=== PATIENT | female | born 1985 | race Caucasian/White ===

== ENCOUNTER 2019-10-24 11:09 | Emergency (ER) | payer BC ==
--- NOTE | 2019-10-24 11:20 | ERPHSYRPT ---
- History of Present Illness Time Seen by Provider: 10/24/19 11:20 Historian: patient Exam Limitations: no limitations Physician History: This is a 34-year-old white female who presents with left-sided abdominal pain that came on suddenly this morning and has worsened and radiated into her left flank. Patient feels nauseated but no vomiting. There is been no diarrhea. Patient is never had this kind of pain before. She has had associated decreased urine output as well. She denies chest pain and she denies shortness of breath. Patient only takes oral contraceptive agents. She has no known drug allergies Timing/Duration: today Activities at Onset: none Quality: sharpness, stabbing Abdominal Pain Onset Location: LLQ, flank Pain Radiation: no radiation Severity of Pain-Max: moderate (Left) Severity of Pain-Current: moderate Modifying Factors: Improves With: nothing Associated Symptoms: diaphoresis, nausea, No chest pain, No diarrhea, No vomiting Previous symptoms: no prior history Allergies/Adverse Reactions: No Known Drug Allergies Allergy (Verified 10/24/19 11:24) Home Medications: Norgestimate-Ethinyl Estradiol [Tri Femynor 28 Tablet] 1 tab PO DAILY 10/24/19 [ History] Travel Risk - International Travel Have you traveled outside of the country in past 3 weeks: No Have you or anyone close to you been diagnosed with or: No Do your reside in a community with a known COVID-19 case?: Yes If Yes where:: [facility] - Coronavirus Screening Has patient experienced Coronavirus symptoms: No - Review of Systems Constitutional: No Symptoms Eyes: No Symptoms Ears, Nose, & Throat: No Symptoms Respiratory: No Symptoms Cardiac: No Symptoms Abdominal/Gastrointestinal: Abdominal Pain, Nausea, No Vomiting, No Diarrhea, No Constipation Genitourinary Symptoms: No Symptoms Musculoskeletal: No Symptoms Skin: No Symptoms Neurological: No Symptoms Psychological: No Symptoms Endocrine: No Symptoms Hematologic/Lymphatic: No Symptoms Immunological/Allergic: No Symptoms All Other Systems: Reviewed and Negative - Past Medical History Pertinent Past Medical History: No Neurological History: No Pertinent History ENT History: No Pertinent History Cardiac History: No Pertinent History Respiratory History: No Pertinent History Endocrine Medical History: No Pertinent History Musculoskeletal History: No Pertinent History GI Medical History: No Pertinent History History: No Pertinent History Psycho-Social History: No Pertinent History Female Reproductive Disorders: No Pertinent History - Past Surgical History Past Surgical History: Yes Neuro Surgical History: No Pertinent History Cardiac: No Pertinent History Respiratory: No Pertinent History Gastrointestinal: No Pertinent History Genitourinary: No Pertinent History Musculoskeletal: No Pertinent History Female Surgical History: Section - Nursing Vital Signs Nursing Vital Signs: Initial Vital Signs Temperature 97.6 F 10/24/19 11:15 Pulse Rate 90 10/24/19 11:15 Respiratory Rate 22 10/24/19 11:15 Blood Pressure 146/91 10/24/19 11:15 O2 Sat by Pulse Oximetry 98 10/24/19 11:15 Pain Scale Pain Intensity 4 - Physical Exam General Appearance: moderate distress, alert, anxiety Eye Exam: PERRL/EOMI, eyes nml inspection Ears, Nose, Throat Exam: normal ENT inspection, moist mucous membranes Neck Exam: normal inspection, non-tender, supple, full range of motion Respiratory Exam: normal breath sounds, lungs clear, No chest tenderness, No respiratory distress Cardiovascular Exam: regular rate/rhythm, normal heart sounds, normal peripheral pulses Gastrointestinal/Abdomen Exam: soft, normal bowel sounds, tenderness (Left upper to left lower quadrant), guarding, No rebound Pelvic Exam: not done Rectal Exam: not done Back Exam: normal inspection, normal range of motion, CVA tenderness, No vertebral tenderness Extremity Exam: normal inspection, normal range of motion, pelvis stable Neurologic Exam: alert, oriented x 3, cooperative, document manager II-XII nml as tested, nml cerebellar function, nml station & gait, sensation nml Skin Exam: normal color, warm, dry Lymphatic Exam: No adenopathy SpO2 Interpretation: normal Ordered Tests: Active Orders 24 hr Category Date Time Status IV Insertion STAT Care 10/24/19 11:24 Active ABDOMEN AND PELVIS W/0 CONTRAS [CT] Stat Exams 10/24/19 11:25 Completed AMYLASE Stat Lab 10/24/19 11:24 Completed CBC W DIFF Stat Lab 10/24/19 11:24 Completed CMP Stat Lab 10/24/19 11:24 Completed HCG,QUALITATIVE URINE Stat Lab 10/24/19 11:31 Completed LIPASE Stat Lab 10/24/19 11:24 Completed Lactic Acid Stat Lab 10/24/19 11:24 Completed UA W/RFX UR CULTURE Stat Lab 10/24/19 11:31 Completed Medication Summary Discontinued Medications Generic Name Dose Route Start Last Admin Trade Name Freq PRN Reason Stop Dose Admin Hydromorphone HCl 1 mg 10/24/19 11:24 10/24/19 11:32 Hydromorphone 1 Mg/Ml Ampule IV 10/24/19 11:25 1 mg STAT ONE Administration Hydromorphone HCl Confirm 10/24/19 11:28 Hydromorphone 1 Mg/Ml Ampule Administered 10/24/19 11:29 Dose 1 mg .ROUTE .STK-MED ONE Sodium Chloride 1,000 mls @ 999 mls/hr 10/24/19 11:24 10/24/19 12:37 Sodium Chloride 0.9% 1000 Ml IV 10/24/19 12:24 Infused .Q1H1M STA Infusion Sodium Chloride Confirm 10/24/19 11:28 Sodium Chloride 0.9% 1000 Ml Administered 10/24/19 11:29 Dose 1,000 mls @ ud .ROUTE .STK-MED ONE Ketorolac Tromethamine 30 mg 10/24/19 13:07 10/24/19 13:09 Toradol 30 Mg Injection IV 10/24/19 13:08 30 mg STAT ONE Administration Ondansetron HCl 4 mg 10/24/19 11:24 10/24/19 11:32 Zofran 4 Mg/2 Ml Vial IV 10/24/19 11:25 4 mg STAT ONE Administration Ondansetron HCl Confirm 10/24/19 11:28 Zofran 4 Mg/2 Ml Vial Administered 10/24/19 11:29 Dose 4 mg .ROUTE .STK-MED ONE Lab/Rad Data: Laboratory Result Diagrams 10/24/19 11:24 10/24/19 11:24 Laboratory Results 10/24/19 10/24/19 10/24/19 Range/Units 11:31 11:31 11:24 WBC (4.0-10.5) K/mm3 RBC (4.1-5.4) M/mm3 Hgb (12.0-16.0) gm/dl Hct (35-47) % MCV (78-100) fl MCH (26-32) pg MCHC (32-36) g/dl RDW (11.5-14.0) % Plt Count (150-450) K/mm3 MPV (7.5-11.0) fl Gran % (36.0-66.0) % Eos # (Auto) (0-0.5) Absolute Lymphs (auto) (1.0-4.6) Absolute Monos (auto) (0.0-1.3) Lymphocytes % (24.0-44.0) % Monocytes % (0.0-12.0) % Eosinophils % (0.00-5.0) % Basophils % (0.0-0.4) % Absolute Granulocytes (1.4-6.9) Basophils # (0-0.4) Sodium 140 (137-145) mmol/L Potassium 3.5 (3.5-5.1) mmol/L Chloride 107 (98-107) mmol/L Carbon Dioxide 21 L (22-30) mmol/L Anion Gap 14.7 (5-15) MEQ/L BUN 11 (7-17) mg/dL Creatinine 0.74 (0.52-1.04) mg/dL Estimated GFR > 60.0 ML/MIN Glucose 94 (74-106) mg/dL Lactic Acid (0.4-2.0) Calcium 9.0 (8.4-10.2) mg/dL Total Bilirubin 0.70 (0.2-1.3) mg/dL AST 26 (14-36) U/L ALT 14 (0-35) U/L Alkaline Phosphatase 115 (38-126) U/L Serum Total Protein 8.0 (6.3-8.2) g/dL Albumin 4.2 (3.5-5.0) g/dL Amylase 83 (30-110) U/L Lipase 62 (23-300) U/L Urine Color YELLOW (YELLOW) Urine Appearance CLEAR (CLEAR) Urine pH 9.0 (5-6) Ur Specific [place] 1.019 (1.005-1.025) Urine Protein 30 (Negative) Urine Ketones TRACE (NEGATIVE) Urine Blood NEGATIVE (0-5) Melchor/ul Urine Nitrite NEGATIVE (NEGATIVE) Urine Bilirubin NEGATIVE (NEGATIVE) Urine Urobilinogen NEGATIVE (0-1) mg/dL Ur Leukocyte Esterase NEGATIVE (NEGATIVE) Urine WBC (Auto) 0-2 (0-5) /HPF Urine RBC (Auto) 3-5 (0-2) /HPF U Epithel Cells (Auto) RARE (FEW) /HPF Urine Bacteria (Auto) NONE (NEGATIVE) /HPF Other Casts (Auto) NEGATIVE (NEGATIVE) /LPF Urine Mucus (Auto) SLIGHT (NEGATIVE) /HPF Urine Culture Reflexed NO (NO) Urine Glucose NEGATIVE (NEGATIVE) mg/dL Urine HCG, Qual NEGATIVE (Negative) 10/24/19 10/24/19 Range/Units 11:24 11:24 WBC 7.1 (4.0-10.5) K/mm3 RBC 4.77 (4.1-5.4) M/mm3 Hgb 12.7 (12.0-16.0) gm/dl Hct 38.8 (35-47) % MCV 81.3 (78-100) fl MCH 26.6 (26-32) pg MCHC 32.7 (32-36) g/dl RDW 14.3 H (11.5-14.0) % Plt Count 298 (150-450) K/mm3 MPV 11.9 H (7.5-11.0) fl Gran % 65.9 (36.0-66.0) % Eos # (Auto) 0.09 (0-0.5) Absolute Lymphs (auto) 1.69 (1.0-4.6) Absolute Monos (auto) 0.63 (0.0-1.3) Lymphocytes % 23.8 L (24.0-44.0) % Monocytes % 8.9 (0.0-12.0) % Eosinophils % 1.3 (0.00-5.0) % Basophils % 0.1 (0.0-0.4) % Absolute Granulocytes 4.67 (1.4-6.9) Basophils # 0.01 (0-0.4) Sodium (137-145) mmol/L Potassium (3.5-5.1) mmol/L Chloride (98-107) mmol/L Carbon Dioxide (22-30) mmol/L Anion Gap (5-15) MEQ/L BUN (7-17) mg/dL Creatinine (0.52-1.04) mg/dL Estimated GFR ML/MIN Glucose (74-106) mg/dL Lactic Acid 1.8 (0.4-2.0) Calcium (8.4-10.2) mg/dL Total Bilirubin (0.2-1.3) mg/dL AST (14-36) U/L ALT (0-35) U/L Alkaline Phosphatase (38-126) U/L Serum Total Protein (6.3-8.2) g/dL Albumin (3.5-5.0) g/dL Amylase (30-110) U/L Lipase (23-300) U/L Urine Color (YELLOW) Urine Appearance (CLEAR) Urine pH (5-6) Ur Specific [place] (1.005-1.025) Urine Protein (Negative) Urine Ketones (NEGATIVE) Urine Blood (0-5) Melchor/ul Urine Nitrite (NEGATIVE) Urine Bilirubin (NEGATIVE) Urine Urobilinogen (0-1) mg/dL Ur Leukocyte Esterase (NEGATIVE) Urine WBC (Auto) (0-5) /HPF Urine RBC (Auto) (0-2) /HPF U Epithel Cells (Auto) (FEW) /HPF Urine Bacteria (Auto) (NEGATIVE) /HPF Other Casts (Auto) (NEGATIVE) /LPF Urine Mucus (Auto) (NEGATIVE) /HPF Urine Culture Reflexed (NO) Urine Glucose (NEGATIVE) mg/dL Urine HCG, Qual (Negative) - Progress Progress: improved Progress Note: 10/24/19 13:10 CAT scan of the abdomen and pelvis reveals a left side distal ureteral calculus that is just above the UVJ. There is minimal left hydronephrosis present. There are 2 small right renal calculi present. Counseled pt/family regarding: lab results, diagnosis, need for follow-up, rad results - Departure Departure Disposition: Home Clinical Impression: Left ureteral calculus Condition: Stable Critical Care Time: No Additional Instructions: Drink plenty of fluids. Use ibuprofen 600 mg orally with food 3 times a day. Take your medication as prescribed. Follow-up with your primary care physician for persistent symptoms. Prescriptions: Hydrocodone/APAP 5/325 [[place] 5/325 mg] 1 each PO Q8H PRN PRN #8 tablet MDD 3 PRN Reason: Pain
[2019-10-24 11:24] VITALS: O2SAT 98
[2019-10-24] MEDS ORDERED: Sodium Chloride 0.9% 1000 ML 1,000 ML IV STA (11:24)
[2019-10-24] MEDS ORDERED: Zofran 4 MG/2 ML VIAL IV ONE (11:24)
[2019-10-24] MEDS ORDERED: Hydromorphone 1 mg/ml Ampule IV ONE (11:24)
[2019-10-24] MEDS ORDERED: Sodium Chloride 0.9% 1000 ML 1,000 ML ONE (11:28)
[2019-10-24] MEDS ORDERED: Zofran 4 MG/2 ML VIAL ONE (11:28)
[2019-10-24] MEDS ORDERED: Hydromorphone 1 mg/ml Ampule ONE (11:28)
[2019-10-24 11:59] LABS: Appearance CLEAR (CLEAR); Bilirubin NEGATIVE (NEGATIVE); Blood NEGATIVE Ery/ul (0-5); Epithelial Cells RARE /HPF (FEW); Glucose NEGATIVE (NEGATIVE); Ketones TRACE (NEGATIVE); Leukocyte Esterase NEGATIVE (NEGATIVE); Mucus SLIGHT /HPF (NEGATIVE); Nitrite NEGATIVE (NEGATIVE); Protein,Urine Dip 30 (Negative); Specific Gravity 1.019 (1.005-1.025); Urobilinogen NEGATIVE mg/dL (0-1); WBC 0-2 /HPF (0-5)
[2019-10-24 12:07] LABS: ALBUMIN 4.2 g/dL (3.5-5.0); ALKALINE PHOSPHATASE 115 U/L (38-126); AMYLASE 83 U/L (30-110); ANION GAP 14.7 MEQ/L (5-15); BLOOD UREA NITROGEN 11 mg/dL (7-17); CHLORIDE 107 mmol/L (98-107); Carbon Dioxide 21 mmol/L (22-30); Creatinine 1 0.74 mg/dL (0.52-1.04); Glucose 94 mg/dL (74-106); LIPASE 62 U/L (23-300); Potassium 3.5 mmol/L (3.5-5.1); SGOT/AST 26 U/L (14-36); SGPT/ALT 14 U/L (0-35); SODIUM 140 mmol/L (137-145)
[2019-10-24 12:18] LABS: Absolute Neutrophil Ct (ANC) 4.67 (1.4-6.9); BASOPHIL % 0.1 % (0.0-0.4); Basophil (Absolute #) 0.01 (0-0.4); Eosinophil % 1.3 % (0.00-5.0); Eosinophil (Absolute #) 0.09 (0-0.5); Hematocrit 38.8 % (35-47); Hemoglobin 12.7 gm/dl (12.0-16.0); Lymphocyte (Absolute #) 1.69 (1.0-4.6); Lymphocytes % 23.8 % (24.0-44.0); Mean Cell Volume 81.3 fl (78-100); Mean Corpuscular Hemoglobin 26.6 pg (26-32); Mean Corpuscular Hgb Concent. 32.7 g/dl (32-36); Mean Platelet Volume 11.9 fl (7.5-11.0); Monocyte (Absolute #) 0.63 (0.0-1.3); Monocytes % 8.9 % (0.0-12.0); Neutrophil % 65.9 % (36.0-66.0); Platelet Count 298 K/mm3 (150-450); Red Blood Count 4.77 M/mm3 (4.1-5.4); Red Cell Distribution Width 14.3 % (11.5-14.0); White Blood Count 7.1 K/mm3 (4.0-10.5)
--- NOTE | 2019-10-24 12:36 | XRAY ---
Indication: Left lower quadrant pain. Difficulty urinating. Multiple contiguous axial images obtained through the abdomen and pelvis without contrast using renal stone protocol. Comparison: None Lung bases demonstrates mild bibasilar atelectasis/scarring and bilateral lower lobe calcified granulomas. Heart is not enlarged with a few tiny distal paraesophageal calcified nodes. There is a 3-4 mm distal left ureter calculus just proximal to the UVJ. Proximal left ureter is slightly prominent up to 8 mm in diameter with minimal hydronephrosis consistent with partial obstructive uropathy. Right kidney demonstrates at least 2 nonobstructing micro-calculi, largest 3 mm. Noncontrasted stomach and bowel loops appear nonobstructed. Normal appendix. No free fluid/air. Remaining liver, gallbladder, pancreas, spleen, adrenal glands, kidneys, ureters, bladder, uterus, and aorta appear unremarkable for noncontrast exam. Osseous structures intact. No ventral or inguinal hernias. Impression: 1. 3-4 mm distal left ureteral calculus producing partial obstruction as detailed. 2 right renal micro-calculi. 2. Evidence for old granulomatous disease. 3. Remaining CT abdomen/pelvis without contrast exam is negative.
[2019-10-24] MEDS ORDERED: TORAdol 30 mg Injection IV ONE (13:07)
[2019-10-24] MEDS ORDERED: TORAdol 30 mg Injection ONE (13:08)
[2019-10-24 13:09] VITALS: BP 114/76; PULSE 80
[2019-10-24 16:13] LABS: BAND 1 % (0.0-2.0); Basophil 2 % (0.0-1.0); Eosinophil 1 % (0.00-3.0); Lymphocytes 21 % (24-44); Monocyte 3 % (0.0-12.0); Neutrophils 72 % (36.0-66.0); Platelet Estimate NORMAL (NORMAL); Total Cells Counted 100
== END 2019-10-24 13:27 | disposition home or self-care (01) ==
LOC: ED 11:09
DX: N13.2 Hydronephrosis with renal and ureteral calculous obstruction (principal); R10.32 Left lower quadrant pain
CPT/HCPCS: 36000; 36415; 74176; 80053; 81001; 82150; 83605; 83690; 84703; 85025; 96360; 96374; 96375; 99284; J1170; J1885; J2405

== ENCOUNTER 2023-01-16 00:42 | Emergency (ER) | payer BC ==
--- NOTE | 2023-01-16 00:52 | ERPHSYRPT ---
- History of Present Illness Time Seen by Provider: 01/16/23 00:52 Historian: patient Exam Limitations: no limitations Physician History: This is a 37-year-old white female patient who presents to the emergency department with sudden onset of right flank and right lower quadrant abdominal pain with associated nausea and vomiting episodes. Patient has a history of ureteral lithiasis in the past on the left side. She now has similar symptoms but on the right side. Patient denies chest pain. She denies shortness of breath. Patient has not had any diarrhea symptoms. She has noticed no fever. Timing/Duration: today Activities at Onset: none Quality: sharpness, stabbing Abdominal Pain Onset Location: flank (Right flank) Pain Radiation: RLQ Severity of Pain-Max: moderate Severity of Pain-Current: moderate Modifying Factors: Improves With: nothing Associated Symptoms: loss of appetite, nausea, vomiting, No chest pain, No diarrhea, No shortness of breath Previous symptoms: same symptoms as today, no recent treatment Allergies/Adverse Reactions: No Known Drug Allergies Allergy (Verified 01/16/23 02:22) Home Medications: norgestimate-ethinyl estradioL [Tri Femynor 28 Tablet] 1 tab PO DAILY 10/24/19 [History] Hx Tetanus, Diphtheria Vaccination/Date Given: No Hx Influenza Vaccination/Date Given: No Hx Pneumococcal Vaccination/Date Given: No Travel Risk - International Travel Have you traveled outside of the country in past 3 weeks: No - Coronavirus Screening Are you exhibiting any of the following symptoms?: No Close contact with a COVID-19 positive Pt in past 14-21 Days: No - Review of Systems Constitutional: No Symptoms Eyes: No Symptoms Ears, Nose, & Throat: No Symptoms Respiratory: No Symptoms Cardiac: No Symptoms Abdominal/Gastrointestinal: Abdominal Pain (Right lower quadrant) Genitourinary Symptoms: Flank Pain (Right flank) Musculoskeletal: No Symptoms Skin: No Symptoms Neurological: No Symptoms Psychological: No Symptoms Endocrine: No Symptoms Hematologic/Lymphatic: No Symptoms Immunological/Allergic: No Symptoms All Other Systems: Reviewed and Negative - Past Medical History Pertinent Past Medical History: No Neurological History: No Pertinent History ENT History: No Pertinent History Cardiac History: No Pertinent History Respiratory History: No Pertinent History Endocrine Medical History: No Pertinent History Musculoskeletal History: No Pertinent History GI Medical History: No Pertinent History History: No Pertinent History Psycho-Social History: No Pertinent History Female Reproductive Disorders: No Pertinent History - Past Surgical History Past Surgical History: Yes Neuro Surgical History: No Pertinent History Cardiac: No Pertinent History Respiratory: No Pertinent History Gastrointestinal: No Pertinent History Genitourinary: No Pertinent History Musculoskeletal: No Pertinent History Female Surgical History: Section Other Surgical History: 3 c section - Social History Smoking Status: Never smoker Exposure to second hand smoke: No Drug Use: none Patient Lives Alone: No - Nursing Vital Signs Nursing Vital Signs: Initial Vital Signs Pulse Rate 73 01/16/23 02:10 Respiratory Rate 16 01/16/23 02:10 Blood Pressure 153/109 01/16/23 02:10 O2 Sat by Pulse Oximetry 100 01/16/23 02:10 Pain Scale Pain Intensity 10 - Physical Exam General Appearance: no apparent distress, alert, anxiety Eye Exam: PERRL/EOMI, eyes nml inspection Ears, Nose, Throat Exam: normal ENT inspection, moist mucous membranes Neck Exam: normal inspection, non-tender, supple, full range of motion Respiratory Exam: normal breath sounds, lungs clear, airway intact, No chest tenderness, No respiratory distress Cardiovascular Exam: regular rate/rhythm, normal heart sounds, normal peripheral pulses Gastrointestinal/Abdomen Exam: soft, normal bowel sounds, tenderness (Right lower quadrant), guarding (Mild right lower quadrant with palpation) Pelvic Exam: not done Rectal Exam: not done Back Exam: normal inspection (Right side), normal range of motion, CVA tenderness, No vertebral tenderness Extremity Exam: normal inspection, normal range of motion, pelvis stable Neurologic Exam: alert, oriented x 3, cooperative, parachutist/combatant diver qualified II-XII nml as tested, normal mood/affect, nml cerebellar function, nml station & gait, sensation nml Skin Exam: normal color, warm, dry Lymphatic Exam: No adenopathy SpO2 Interpretation: normal O2 Delivery: Room Air - Course Nursing assessment & vital signs reviewed: Yes Ordered Tests: Active Orders 24 hr Category Date Time Status ABDOMEN AND PELVIS W/0 CONTRAS [CT] Stat Exams 01/16/23 01:48 Completed AMYLASE Stat Lab 01/16/23 02:25 Completed CBC W DIFF Stat Lab 01/16/23 02:25 Completed CMP Stat Lab 01/16/23 02:25 Completed CULTURE,URINE Stat Lab 01/16/23 02:20 Received LIPASE Stat Lab 01/16/23 02:25 Completed UA W/RFX UR CULTURE Stat Lab 01/16/23 02:20 Completed Medication Summary Discontinued Medications Generic Name Dose Route Start Last Admin Trade Name Kristian PRN Reason Stop Dose Admin Hydromorphone HCl 1 mg 01/16/23 01:47 01/16/23 02:09 Hydromorphone 1 Mg/1ml Inj IV 01/16/23 01:48 1 mg STAT ONE Administration Hydromorphone HCl Confirm 01/16/23 02:02 Hydromorphone 1 Mg/1ml Inj Administered 01/16/23 02:03 Dose 1 mg .ROUTE .STK-MED ONE Sodium Chloride 1,000 mls @ 999 mls/hr 01/16/23 01:47 01/16/23 02:10 Sodium Chloride 0.9% 1000 Ml IV 01/16/23 02:47 999 mls/hr .Q1H1M STA Administration Sodium Chloride Confirm 01/16/23 02:02 Sodium Chloride 0.9% 1000 Ml Administered 01/16/23 02:03 Dose 1,000 mls @ ud .ROUTE .STK-MED ONE Ketorolac Tromethamine 30 mg 01/16/23 01:47 01/16/23 02:10 Ketorolac Tromethamine 30 Mg/Ml Inj IV 01/16/23 01:48 30 mg STAT ONE Administration Ketorolac Tromethamine Confirm 01/16/23 02:01 Ketorolac Tromethamine 30 Mg/Ml Inj Administered 01/16/23 02:02 Dose 30 mg .ROUTE .STK-MED ONE Ondansetron HCl 4 mg 01/16/23 01:47 01/16/23 02:10 Ondansetron Hcl 4 Mg/2 Ml Vial IV 01/16/23 01:48 4 mg STAT ONE Administration Ondansetron HCl Confirm 01/16/23 02:01 Ondansetron Hcl 4 Mg/2 Ml Vial Administered 01/16/23 02:02 Dose 4 mg .ROUTE .STK-MED ONE Lab/Rad Data: Laboratory Result Diagrams 01/16/23 02:25 01/16/23 02:25 Laboratory Results 01/16/23 01/16/23 01/16/23 Range/Units 02:25 02:25 02:20 WBC 11.4 H (4.0-10.5) x10^3/uL RBC 4.38 (4.1-5.4) x10^6/uL Hgb 11.1 L (12.0-16.0) g/dL Hct 35.5 (35-47) % MCV 81.1 (78-100) fL MCH 25.3 L (26-32) pg MCHC 31.3 L (32-36) g/dL RDW 14.0 (11.5-14.0) % Plt Count 331 (150-450) x10^3/uL MPV 11.2 H (7.5-11.0) fL Gran % 72.0 H (36.0-66.0) % Immature Gran % (Auto) 0.3 (0.00-0.4) % Nucleat RBC Rel Count 0.0 (0.00-0.1) % Eos # (Auto) 0.12 (0-0.5) x10^3/uL Immature Gran # (Auto) 0.03 (0.00-0.03) x10^3u/L Absolute Lymphs (auto) 2.23 (1.0-4.6) x10^3/uL Absolute Monos (auto) 0.75 (0.0-1.3) x10^3/uL Absolute Nucleated RBC 0.00 (0.00-0.01) x10^3u/L Lymphocytes % 19.6 L (24.0-44.0) % Monocytes % 6.6 (0.0-12.0) % Eosinophils % 1.1 (0.00-5.0) % Basophils % 0.4 (0.0-0.4) % Absolute Granulocytes 8.17 H (1.4-6.9) x10^3/uL Basophils # 0.05 (0-0.4) x10^3/uL Sodium 138 (137-145) mmol/L Potassium 3.6 (3.5-5.1) mmol/L Chloride 104 (98-107) mmol/L Carbon Dioxide 22 (22-30) mmol/L Anion Gap 15.1 H (5-15) MEQ/L BUN 10 (7-17) mg/dL Creatinine 0.72 (0.52-1.04) mg/dL Estimated GFR > 60.0 ML/MIN Glucose 125 H (74-106) mg/dL Calcium 9.2 (8.4-10.2) mg/dL Total Bilirubin 0.50 (0.2-1.3) mg/dL AST 22 (14-36) U/L ALT 15 (0-35) U/L Alkaline Phosphatase 119 (38-126) U/L Serum Total Protein 7.9 (6.3-8.2) g/dL Albumin 4.2 (3.5-5.0) g/dL Amylase 77 (30-110) U/L Lipase 80 (23-300) U/L Urine Color Yellow (Yellow) Urine Appearance Clear (Clear) Urine pH 7.0 (4.6-8.0) Ur Specific [place] 1.020 (1.005-1.030) Urine Protein Trace A (Negative) Urine Glucose (UA) Negative (Negative) mg/dL Urine Ketones Negative (Negative) Urine Blood Negative (Negative) Urine Nitrite Negative (Negative) Urine Bilirubin Negative (Negative) Urine Urobilinogen 1.0 A (0.2) mg/dL Ur Leukocyte Esterase Small A (Negative) U Hyaline Cast (Auto) 3-5 A (0-2) /LPF Urine Microscopic RBC 0-2 (0-5) /HPF Urine Microscopic WBC 6-10 A (0-5) /HPF Ur Epithelial Cells Few (None Seen) /HPF Urine Bacteria None Seen (None Seen) /HPF Urine Culture Reflexed YES (NO) - Progress Progress: improved, pain not gone completely Progress Note: 01/16/23 04:20 This patient's medical issue is 1 of moderate complexity. The level complexity and the work-up performed is based on review of the patient's past medical history, review of the patient's medication list, review the patient's drug allergy list, history of present illness and physical findings on examination. This patient's work-up includes placement of intravenous line, infusion of normal saline solution, infusion of Zofran, Toradol 30 mg, Dilaudid 1 mg intravenously, CBC, CMP, urinalysis and CT scan of the abdomen pelvis without contrast. I reviewed the results of the work-up including a CT scan of the abdomen and pelvis without contrast which shows a distal right ureteral calculus measuring approximately 4 to 5 mm and associated mild right hydronephrosis. The patient has a mild UTI associated with the ureteral stone in the left ureter. We will give 1 g of Rocephin intravenously and remotely send a prescr iption to the patient's pharmacy for Keflex and Zofran as well as hydrocodone/acetaminophen. 01/16/23 04:23 01/16/23 04:28 Counseled pt/family regarding: lab results, diagnosis, need for follow-up, rad results Medical Desision Making - Independent Historian Additional History obtained from: Spouse - Diagnostic Testing Diagnostic test were ordered, analyzed, and reviewed by me: Yes Radiological Interpretation: Reviewed by me, Teleradiologist Report - Risk of complications The pt has a mod risk of morbidity or mortality based on: Need for prescription drug management - Departure Departure Disposition: Home Clinical Impression: Right ureteral calculus, UTI (urinary tract infection) Condition: Stable Critical Care Time: No Additional Instructions: Drink plenty of fluids. Take your medication as prescribed. Follow-up with your primary care provider for further evaluation management. If your symptoms worsen you can always come to this emergency department but as you know we do not have urology here at this facility. You may consider going to a facility where there is a urologist if your symptoms do in fact worsen. Prescriptions: Ondansetron ODT 4 MG [Zofran Odt 4 mg] 4 mg PO Q6H PRN PRN #10 tablet PRN Reason: Vomiting Hydrocodone/APAP 5/325 [[place] 5/325 mg] 1 each PO Q8H PRN PRN #6 tablet MDD 3 PRN Reason: Pain Tamsulosin HCl 0.4 mg [Flomax 0.4 MG] 0.4 mg PO DAILY #7 cap Cephalexin Mh 500 mg [Keflex 500 mg] 500 mg PO TID #21 cap
[2023-01-16] MEDS ORDERED: Hydromorphone 1 mg/ml Injection IV ONE ×2 (01:47→05:11)
[2023-01-16] MEDS ORDERED: TORAdol 30 mg Injection IV ONE (01:47)
[2023-01-16] MEDS ORDERED: Sodium Chloride 0.9% 1000 ML 1,000 ML IV STA (01:47)
[2023-01-16] MEDS ORDERED: Zofran 4 MG/2 ML VIAL IV ONE (01:47)
[2023-01-16] MEDS ORDERED: TORAdol 30 mg Injection ONE (02:01)
[2023-01-16] MEDS ORDERED: Zofran 4 MG/2 ML VIAL ONE ×2 (02:01→05:19)
[2023-01-16] MEDS ORDERED: Hydromorphone 1 mg/ml Injection ONE ×2 (02:02→05:13)
[2023-01-16] MEDS ORDERED: Sodium Chloride 0.9% 1000 ML 1,000 ML ONE (02:02)
[2023-01-16 02:17] VITALS: RESP 16
[2023-01-16 02:48] LABS: Absolute Neutrophil Ct (ANC) 8.17 x10^3/uL (1.4-6.9); BASOPHIL % 0.4 % (0.0-0.4); Basophil (Absolute #) 0.05 x10^3/uL (0-0.4); Eosinophil % 1.1 % (0.00-5.0); Eosinophil (Absolute #) 0.12 x10^3/uL (0-0.5); Hematocrit 35.5 % (35-47); Hemoglobin 11.1 g/dL (12.0-16.0); IMMATURE GRAN # 0.03 x10^3u/L (0.00-0.03); IMMATURE GRAN % 0.3 % (0.00-0.4); Lymphocyte (Absolute #) 2.23 x10^3/uL (1.0-4.6); Lymphocytes % 19.6 % (24.0-44.0); Mean Cell Volume 81.1 fL (78-100); Mean Corpuscular Hemoglobin 25.3 pg (26-32); Mean Corpuscular Hgb Concent. 31.3 g/dL (32-36); Mean Platelet Volume 11.2 fL (7.5-11.0); Monocyte (Absolute #) 0.75 x10^3/uL (0.0-1.3); Monocytes % 6.6 % (0.0-12.0); Platelet Count 331 x10^3/uL (150-450); Red Blood Count 4.38 x10^6/uL (4.1-5.4); White Blood Count 11.4 x10^3/uL (4.0-10.5)
[2023-01-16 03:01] LABS: ALBUMIN 4.2 g/dL (3.5-5.0); ALKALINE PHOSPHATASE 119 U/L (38-126); AMYLASE 77 U/L (30-110); ANION GAP 15.1 MEQ/L (5-15); BLOOD UREA NITROGEN 10 mg/dL (7-17); CHLORIDE 104 mmol/L (98-107); Calcium 9.2 mg/dL (8.4-10.2); Carbon Dioxide 22 mmol/L (22-30); Creatinine 1 0.72 mg/dL (0.52-1.04); EST GLOMERULAR FILTRATION RATE > 60.0 ML/MIN; Glucose 125 mg/dL (74-106); LIPASE 80 U/L (23-300); Potassium 3.6 mmol/L (3.5-5.1); SGOT/AST 22 U/L (14-36); SGPT/ALT 15 U/L (0-35); SODIUM 138 mmol/L (137-145); Total Protein 7.9 g/dL (6.3-8.2)
[2023-01-16 03:07] LABS: Appearance Clear (Clear); Bacteria None Seen /HPF (None Seen); Bilirubin Negative (Negative); Blood Negative (Negative); Epithelial Cells Few /HPF (None Seen); Glucose, Urine Negative (Negative); Ketones Negative (Negative); Leukocyte Esterase Small (Negative); Nitrite Negative (Negative); Protein,Urine Dip Trace (Negative); RBC 0-2 /HPF (0-5)
[2023-01-16 03:12] LABS: ADD URINE CULTURE? YES (NO)
--- NOTE | 2023-01-16 04:13 | XRAY ---
CLINICAL HISTORY:Flank pain COMPARISON:None. TECHNIQUE:Contiguous axial CT images were acquired through the abdomen and pelvis without intravenous contrast. Reconstructed coronal and sagittal images were also acquired.? FINDINGS: Right distal ureteric stone measuring 4 x 5 mm (denisty 911 HU) just proximal to right vesicoureteric junction is seen with secondary mild dilatation of the right ureter and right pelvicalyceal system. No right renal stones. Lung bases:? Grossly clear. 2 right lower lobe calcified nodules likley granulomata, largest measures 7 mm. Liver:???Unremarkable size and contour. No evidence of mass. No evidence of dilated ducts. Gallbladder fossa:? Unremarkable. Spleen:? Grossly unremarkable. Pancreas: Grossly unremarkable. Adrenal glands:? ?Grossly unremarkable size, contour and density. Left Kidney:???In anatomic position. Grossly unremarkable?renal size, contour and density. No renal or ureteral calculi. No hydronephrosis.? Perinephric space is unremarkable. Retroperitoneum: No retroperitoneal lymphadenopathy. No abdominal aorta gross aneurysm.? Peritoneal cavity:? No evidence of free air or ascites. Gastrointestinal tract: No evidence of obstruction. Pelvis: Solid and hollow viscera grossly unremarkable.? Bladder is unremarkable. Osseous structures: No acute bony abnormalities are identified. ? IMPRESSION: Right distal ureteric stone with secondary right mild hydroureteronephrosis. Electronically Signed by: Leanne Jose MD. (01/16/2023 03:11:19 EMISSION SPECIALIST)
[2023-01-16] MEDS ORDERED: ROCEPHIN 1 Gm-D5w 50 ml Bag** 1 G/50 ML IVPB IV STA (04:22)
[2023-01-16] MEDS ORDERED: ROCEPHIN 1 Gm-D5w 50 ml Bag** 1 G/50 ML IVPB IV ONE (04:35)
[2023-01-16 05:36] VITALS: BP 131/80; PULSE 85; O2SAT 99
== END 2023-01-16 06:20 | disposition home or self-care (01) ==
LOC: ED 00:42
DX: N13.2 Hydronephrosis with renal and ureteral calculous obstruction (principal); N39.0 Urinary tract infection, site not specified; R10.31 Right lower quadrant pain; R11.2 Nausea with vomiting, unspecified; Z79.891 Long term (current) use of opiate analgesic; Z87.442 Personal history of urinary calculi
CPT/HCPCS: 36415; 74176; 80053; 81001; 82150; 83690; 85025; 87086; 96374; 96375; 96376; 99284; J0696; J1170; J1885; J2405

== ENCOUNTER 2024-09-17 18:02 | Emergency (ER) | payer BC ==
[2024-09-17 18:15] VITALS: TEMP 98.1; O2SAT 99
[2024-09-17] MEDS ORDERED: Zofran 4 MG/2 ML VIAL ONE (18:19)
[2024-09-17] MEDS ORDERED: Sodium Chloride 0.9% 1000 ML 1,000 ML ONE ×2 (18:19→19:39)
[2024-09-17] MEDS: Zofran 4 MG/2 ML VIAL IV ONE (18:25)
[2024-09-17] MEDS: Sodium Chloride 0.9% 1000 ML 1,000 ML IV STA (18:25)
--- NOTE | 2024-09-17 18:33 | ERPHSYRPT ---
- History of Present Illness Time Seen by Provider: 09/17/24 18:08 Historian: patient Exam Limitations: no limitations Patient Subjective Stated Complaint: Diarrhea Triage Nursing Assessment: Patient ambulated back to ED and transferred self to bed. Patient A+O X 3. Patient's skin pink, warm and dry. Patient states she started vomiting last night and this am has had N/V and diarrhea. Patient states she is unable to keep any food/fluids down. Patient denies pain or discomfort. Abdomen soft and round with BS X 4. Physician History: 39 years old female presented in the ER with complaints of nausea vomiting and diarrhea since morning. Patient reports multiple episodes of nonprojectile, nonbilious vomiting without hematemesis. Also report having multiple episode of loose stool with no hematochezia. Reports mild abdominal cramping with nausea and dry heaving but no pain otherwise. No known sick contact. No fever or chills reported. Patient reports she is not able to hold much down. Feels weak fatigued tired and dehydrated. Allergies/Adverse Reactions: No Known Drug Allergies Allergy (Verified 09/17/24 18:06) Hx Tetanus, Diphtheria Vaccination/Date Given: No Hx Influenza Vaccination/Date Given: No Hx Pneumococcal Vaccination/Date Given: No Immunizations Up to Date: Yes Travel Risk - International Travel Have you traveled outside of the country in past 3 weeks: No - Emerging Infectious Disease Are you exhibiting symptoms associated with any current EIDs: No - Review of Systems Constitutional: Fatigue, Weakness Eyes: No Symptoms Ears, Nose, & Throat: No Symptoms Respiratory: No Symptoms Cardiac: No Symptoms Abdominal/Gastrointestinal: Abdominal Pain, Nausea, Vomiting, Diarrhea Genitourinary Symptoms: No Symptoms Musculoskeletal: No Symptoms Skin: No Symptoms Neurological: No Symptoms Psychological: No Symptoms Endocrine: No Symptoms Hematologic/Lymphatic: No Symptoms - Past Medical History Pertinent Past Medical History: No Neurological History: No Pertinent History ENT History: No Pertinent History Cardiac History: No Pertinent History Respiratory History: No Pertinent History Endocrine Medical History: No Pertinent History Musculoskeletal History: No Pertinent History GI Medical History: No Pertinent History History: No Pertinent History Psycho-Social History: No Pertinent History Female Reproductive Disorders: No Pertinent History Other Medical History: hs of kidney stones - Past Surgical History Past Surgical History: Yes Neuro Surgical History: No Pertinent History Cardiac: No Pertinent History Respiratory: No Pertinent History Gastrointestinal: No Pertinent History Genitourinary: No Pertinent History Musculoskeletal: No Pertinent History Female Surgical History: Section Other Surgical History: 3 c section - Female History Hx Last Menstrual Period: last week Hx Now: No - Social History Smoking Status: Never smoker Exposure to second hand smoke: No Drug Use: none - Social Determinants of Health Will the patient participate in the screening: Yes Do you worry about a steady place to live?: No Do you have any problems with any of the following?: No known problems In the past 12 months,have you had to go without utilities?: No Transportation Issues: No Has anyone in your support network made you feel unsafe?: No Have you or anyone in your house had to go w/o enough food: No - Nursing Vital Signs Nursing Vital Signs: Initial Vital Signs Temperature 98.1 F 09/17/24 18:06 Pulse Rate 91 H 09/17/24 18:06 Respiratory Rate 20 09/17/24 18:06 Blood Pressure 164/107 09/17/24 18:06 O2 Sat by Pulse Oximetry 99 09/17/24 18:06 Pain Scale Pain Intensity 0 - Physical Exam General Appearance: no apparent distress Eye Exam: PERRL/EOMI Ears, Nose, Throat Exam: normal ENT inspection Neck Exam: normal inspection Respiratory Exam: normal breath sounds, lungs clear Cardiovascular Exam: regular rate/rhythm, normal heart sounds Gastrointestinal/Abdomen Exam: soft, normal bowel sounds, No tenderness, No guarding Back Exam: normal inspection, normal range of motion Extremity Exam: normal inspection, normal range of motion Neurologic Exam: alert, oriented x 3, cooperative Skin Exam: normal color SpO2 Interpretation: normal SpO2: 99 O2 Delivery: Room Air Ordered Tests: Active Orders 24 hr Category Date Time Status IV Insertion STAT Care 09/17/24 18:23 Active CBC W DIFF Stat Lab 09/17/24 18:30 Completed CMP Stat Lab 09/17/24 18:30 Completed LIPASE Stat Lab 09/17/24 18:30 Completed UA W/RFX UR CULTURE Stat Lab 09/17/24 18:25 Completed Medication Summary Generic Name Dose Route Start Last Admin Trade Name Freq PRN Reason Stop Dose Admin Sodium Chloride 1,000 mls @ 999 mls/hr 09/17/24 19:45 09/17/24 19:41 Sodium Chloride 0.9% 1000 Ml IV 10/17/24 19:44 999 mls/hr .Q1H1M MARY Administration Discontinued Medications Generic Name Dose Route Start Last Admin Trade Name Kristian PRN Reason Stop Dose Admin Sodium Chloride Confirm 09/17/24 18:19 Sodium Chloride 0.9% 1000 Ml Administered 09/17/24 18:20 Dose 1,000 mls @ ud .ROUTE .STK-MED ONE Sodium Chloride 1,000 mls @ 999 mls/hr 09/17/24 18:23 09/17/24 19:49 Sodium Chloride 0.9% 1000 Ml IV 09/17/24 19:23 Infused .Q1H1M STA Infusion Metoclopramide HCl 10 mg 09/17/24 19:37 09/17/24 19:41 Metoclopramide Hcl 10 Mg/2 Ml Vial IV 09/17/24 19:38 10 mg STAT ONE Administration Metoclopramide HCl Confirm 09/17/24 19:39 Metoclopramide Hcl 10 Mg/2 Ml Vial Administered 09/17/24 19:40 Dose 10 mg .ROUTE .STK-MED ONE Ondansetron HCl Confirm 09/17/24 18:19 Ondansetron Hcl 4 Mg/2 Ml Vial Administered 09/17/24 18:20 Dose 4 mg .ROUTE .STK-MED ONE Ondansetron HCl 4 mg 09/17/24 18:23 09/17/24 18:25 Ondansetron Hcl 4 Mg/2 Ml Vial IV 09/17/24 18:24 4 mg STAT ONE Administration Lab/Rad Data: Laboratory Result Diagrams 09/17/24 18:30 09/17/24 18:30 Laboratory Results 09/17/24 09/17/24 09/17/24 Range/Units 18:30 18:30 18:25 WBC 14.1 H (3.98-10.04) x10^3/uL RBC 4.88 (3.93-5.22) x10^6/uL Hgb 11.9 (11.2-15.7) g/dL Hct 37.8 (34.1-44.9) % MCV 77.5 L (79.4-94.8) fL MCH 24.4 L (25.6-32.2) pg MCHC 31.5 L (32.2-35.5) g/dL RDW 14.8 H (11.7-14.4) % Plt Count 394 H (182-369) x10^3/uL MPV 10.1 (9.4-12.3) fL Gran % 83.2 H (34.0-71.1) % Immature Gran % (Auto) 0.5 H (0.001-0.429) % Nucleat RBC Rel Count 0.0 (0.00-0.2) % Eos # (Auto) 0.01 L (0.04-0.36) x10^3/uL Immature Gran # (Auto) 0.07 H (0.001-0.031) x10^3u/L Absolute Lymphs (auto) 1.43 (1.18-3.74) x10^3/uL Absolute Monos (auto) 0.82 (0.24-0.86) x10^3/uL Absolute Nucleated RBC 0.00 (0.00-0.012) x10^3u/L Lymphocytes % 10.1 L (19.3-51.7) % Monocytes % 5.8 (4.7-12.5) % Eosinophils % 0.1 L (0.7-5.8) % Basophils % 0.3 (0.1-1.2) % Absolute Granulocytes 11.77 H (1.56-6.13) x10^3/uL Basophils # 0.04 (0.01-0.08) x10^3/uL Sodium 144 (135-145) mmol/L Potassium 3.9 (3.5-5.1) mmol/L Chloride 104 (98-107) mmol/L Carbon Dioxide 26 (22-30) mmol/L Anion Gap 18.5 H (5-15) MEQ/L BUN 9 (7-17) mg/dL Creatinine 0.66 (0.52-1.04) mg/dL Estimated GFR 115.1 ML/MIN Glucose 110 H (74-106) mg/dL Calcium 9.0 (8.4-10.2) mg/dL Total Bilirubin 0.70 (0.2-1.3) mg/dL AST 36 (14-36) U/L ALT 27 (0-35) U/L Alkaline Phosphatase 144 H (38-126) U/L Serum Total Protein 8.5 H (6.3-8.2) g/dL Albumin 4.9 (3.5-5.0) g/dL Lipase 39 (23-300) U/L Urine Color Yellow (Yellow) Urine Appearance Clear (Clear) Urine pH 8.5 A (4.6-8.0) Ur Specific [place] 1.020 (1.005-1.030) Urine Protein 30 (Negative) Urine Glucose (UA) Negative (Negative) mg/dL Urine Ketones Negative (Negative) Urine Blood Negative (Negative) Urine Nitrite Negative (Negative) Urine Bilirubin Negative (Negative) Urine Urobilinogen 0.2 (0.2) mg/dL Ur Leukocyte Esterase Negative (Negative) U Hyaline Cast (Auto) NONE SEEN (0-2) /LPF Urine Microscopic RBC 0-2 (0-5) /HPF Urine Microscopic WBC 0-2 (0-5) /HPF Ur Epithelial Cells Rare (None Seen) /HPF Urine Bacteria Rare A (None Seen) /HPF Urine Culture Reflexed NO (NO) - Progress Progress: improved, re-examined Progress Note: 09/17/24 20:50 39 years old is evaluated in the ER for nausea vomiting with diarrhea since morning. Patient has no peritoneal signs on initial and repeated evaluations. She is given fluids and symptomatic treatment, on reevaluation she is feeling much better. No vomiting or diarrhea while in the ER and here. Workup showed white count of 14, chemistries fairly unremarkable except for some element of dehydration. She is feeling much improved. I believe patient has viral gastroenteritis. Has normoactive bowel sounds. Do not think patient needs imaging or any other workup, recommended taking Tylenol/Zofran and increase hydration/outpatient follow-up. Discussed signs symptoms of worsening needing return to ER which she seems understanding. Stable for discharge. Complexity of problem addressed: Moderate acute Complexity of data reviewed/analyzed,: Moderate Risk of complication: Low Counseled pt/family regarding: lab results, diagnosis, need for follow-up Medical Desision Making - Independent Historian Additional History obtained from: Spouse - Diagnostic Testing Diagnostic test were ordered, analyzed, and reviewed by me: Yes - Risk of complications The pt has a mod risk of morbidity or mortality based on: Need for prescription drug management - Departure Departure Disposition: Home Clinical Impression: Acute gastroenteritis Condition: Stable Critical Care Time: No Referrals: DOCTOR,NO FAMILY [Primary Care Provider, UNKNOWN] - Follow up with PCP 1 day Instructions: Diarrhea and Traveler's Diarrhea, Adult (DC) Additional Instructions: Drink plenty of fluids. Take Tylenol/Zofran as needed. Follow-up with your primary care for reevaluation. Return to ER for worsening of diarrhea/vomiting or if develop fever chills, abdominal pain etc. Prescriptions: Ondansetron ODT 4 MG [Zofran Odt 4 mg] 1 ea PO QIDPRN PRN #10 tablet PRN Reason: n/v
[2024-09-17 18:34] LABS: Absolute Neutrophil Ct (ANC) 11.77 x10^3/uL (1.56-6.13); BASOPHIL % 0.3 % (0.1-1.2); Basophil (Absolute #) 0.04 x10^3/uL (0.01-0.08); Eosinophil % 0.1 % (0.7-5.8); Eosinophil (Absolute #) 0.01 x10^3/uL (0.04-0.36); Hematocrit 37.8 % (34.1-44.9); Hemoglobin 11.9 g/dL (11.2-15.7); IMMATURE GRAN # 0.07 x10^3u/L (0.001-0.031); IMMATURE GRAN % 0.5 % (0.001-0.429); Lymphocyte (Absolute #) 1.43 x10^3/uL (1.18-3.74); Lymphocytes % 10.1 % (19.3-51.7); Mean Cell Volume 77.5 fL (79.4-94.8); Mean Corpuscular Hemoglobin 24.4 pg (25.6-32.2); Mean Corpuscular Hgb Concent. 31.5 g/dL (32.2-35.5); Mean Platelet Volume 10.1 fL (9.4-12.3); Monocyte (Absolute #) 0.82 x10^3/uL (0.24-0.86); Monocytes % 5.8 % (4.7-12.5); Neutrophil % 83.2 % (34.0-71.1); Platelet Count 394 x10^3/uL (182-369); Red Blood Count 4.88 x10^6/uL (3.93-5.22); Red Cell Distribution Width 14.8 % (11.7-14.4); White Blood Count 14.1 x10^3/uL (3.98-10.04)
[2024-09-17 18:40] LABS: Appearance Clear (Clear); Bacteria Rare /HPF (None Seen); Bilirubin Negative (Negative); Blood Negative (Negative); Epithelial Cells Rare /HPF (None Seen); Glucose, Urine Negative (Negative); Hyaline Casts NONE SEEN /LPF (0-2); Ketones Negative (Negative); Leukocyte Esterase Negative (Negative); Nitrite Negative (Negative); Ph 8.5 (4.6-8.0); Protein,Urine Dip 30 (Negative); RBC 0-2 /HPF (0-5); Urobilinogen 0.2 mg/dL (0.2); WBC 0-2 /HPF (0-5)
[2024-09-17 18:46] LABS: ALBUMIN 4.9 g/dL (3.5-5.0); ANION GAP 18.5 MEQ/L (5-15); BILIRUBIN,TOTAL 0.7 mg/dL (0.2-1.3); Creatinine 1 0.66 mg/dL (0.52-1.04); EST GLOMERULAR FILTRATION RATE 115.1 ML/MIN; Potassium 3.9 mmol/L (3.5-5.1); Total Protein 8.5 g/dL (6.3-8.2)
[2024-09-17] MEDS ORDERED: Reglan 10 MG/2 ML ONE (19:39)
[2024-09-17] MEDS: Sodium Chloride 0.9% 1000 ML 1,000 ML IV SCH (19:41)
[2024-09-17] MEDS: Reglan 10 MG/2 ML IV ONE (19:41)
[2024-09-17 21:10] VITALS: BP 124/76; PULSE 100; RESP 19
== END 2024-09-17 21:05 | disposition home or self-care (01) ==
LOC: ED 18:02
DX: A08.4 Viral intestinal infection, unspecified (principal); R11.2 Nausea with vomiting, unspecified; R10.9 Unspecified abdominal pain; R53.1 Weakness; Z79.899 Other long term (current) drug therapy
CPT/HCPCS: 36415; 80053; 81001; 83690; 85025; 96361; 96374; 96375; 99284; J2405